=== PATIENT | female | born 1960 | race Caucasian/White ===

== ENCOUNTER 2025-02-10 11:17 | Outpatient (AMB) | payer MEDICARE, MEDICAID, SELFPAY ==
--- OUTSIDE RECORDS SUMMARY | 2025-02-10 13:01 | XMS_ITS | Clinical Summary ---
Author Organization [facility] 299 [facility] Address [address] [place] [address] Phone Care Team Providers Care Television Specialist Name Role Phone Renu Ventura MD Primary Care Provider + [phone] Allergies Active Allergy Reactions Criticality Noted Date Comments Codeine Anaphylaxis High 01/01/2019 Doxycycline High 01/01/2019 Other Reaction(s): Numbness, tingling or swelling of the lips, tongue or mouth Medications levothyroxine (SYNTHROID, LEVOTHROID) 100 mcg tablet Take 10 mcg by mouth daily. 10 mcg Active loratadine (CLARITIN) 10 mg tablet Take 10 mg by mouth daily. Active sertraline HCl (SERTRALINE ORAL) Take 200 mg by mouth daily. Active lamoTRIgine (LaMICtal) 150 mg tablet Take 150 mg by mouth daily. Active cholecalciferol, vitamin D3, 75 mcg (3,000 unit) tablet Take by mouth. Daily Active aspirin (ASPIR-81 ORAL) Take 81 mg by mouth daily. Active atorvastatin (LIPITOR) 10 mg tablet Take 10 mg by mouth daily. Active ezetimibe (ZETIA) 10 mg tablet Take 10 mg by mouth daily. Active NexIUM [address] nedraIndicaticarmen ns:GERD (gastroesophagea l reflux disease) TAKE 1 CAPSULE BY MOUTH TWICE A DAY 180 capsule 2 07/12/19 25 Active benzonatate (TESSALON) 200 mg capsule TAKE 1 CAPSULE BY MOUTH THREE TIMES A DAY NEEDED FOR COUGH NOT CVD* 07/14/19 25 Active betamethasone dipropionate 0.05 % lotion APPLY TO PSORIASIS ON SCALP TWICE DAILY NEEDED 06/01/20 24 Active fluocinonide (LIDEX) 0.05 % gel 0 Refills, Maintenance, 06/24/24 1:27:00 PM EST, Partial fill upon patient request if the prescription is for a schedule II opioid drug. 06/24/19 25 Active fluocinonide (LIDEX) 0.05 % topical solution PLEASE SEE ATTACHED FOR DETAILED DIRECTIONS Active fluticasone propionate (FLONASE) 50 mcg/actuation nasal spray SPRAY ONE SPRAY INTO EACH NOSTRIL Active ketoconazole (NIZORAL) 2 % shampoo PLEASE SEE ATTACHED FOR DETAILED DIRECTIONS Active lisinopriL (PRINIVIL,ZESTRI L) 10 mg tablet Take 1 tablet (10 mg total) by mouth 1 (one) time each day. Active montelukast (SINGULAIR) 10 mg tablet Take 1 tablet (10 mg total) by mouth 1 (one) time each day in the evening. Active Mounjaro 5 mg/0.5 mL injection INJECT 0.5ML SUBCUTANEOUS INFUSION EVERY WEEK 09/29/19 25 Active valACYclovir (VALTREX) 1 gram tablet TAKE TWO PILLS (2 GM) EVERY 12 HOURS X 1 DAY. START AT FIRST SYMPTOM OF COLD SORE. Active mupirocin (BACTROBAN) 2 % ointment Apply topically 3 (three) times a day. Active multivit-min/sarita janine fumarate (MULTI VITAMIN ORAL) Take by mouth. Activ e polyethylene glycol (MIRALAX) 17 gram packetIndication s:Slow transit constipation Take 17 g by mouth 1 (one) time each day. 510 g 11 10/13/19 25 026 Active rOPINIRole (REQUIP) 1 mg tablet Take 1 tablet (1 mg total) by mouth at bedtime. 30 tablet 3 01/20/20 25 Active rOPINIRole (REQUIP) 1 mg tablet TAKE 1 TABLET BY MOUTH DAILY AT BEDTIME AFTER COMPLETION OF 0.25MG PRESCRIPTION 025 Discontin ued(Reord er) Active Problems Problem Noted Date Diagnosed Date Breast pain 01/01/2019 Class 3 severe obesity with body mass index (BMI) of 40.0 to 44.9 in adult ([facility] V24, [facility] V28) 01/01/2019 Surgical History Surgery Date Site/Laterality Comments BREAST REDUCTION PROCEDURE: NC BREAST REDUCTION; COMMENT: 2016 TUBAL LIGATION PROCEDURE: HISTORICAL TUBAL LIGATION; COMMENT: 2007 TONSILLECTOMY PROCEDURE: HISTORICAL TONSILLECTOMY; COMMENT: 1976 CHOLECYSTECTOMY 04/14/2023 Dr. Lopez- partial kayleigh with ELIAN LUNG SURGERY 06/03/2023 RUL nodule- Dr. Burt ESOPHAGOGASTRODUODENOSCOPY 03/01/2022 small hh, nl gastric and esophagus bx ESOPHAGOGASTRODUODENOSCOPY 11/12/2011 small hh, fundic polyp COLONOSCOPY W/ POLYPECTOMY 02/21/2018 - 03/22/2018 TA x 3 COLONOSCOPY 05/23/2021 - 06/22/2021 TA x 1 - 5 yr Medical History Medical History Date Comments Asthma DX:Asthma Pneumonia DX:Pneumonia Thyroid disease DX:Thyroid disea se History of bleeding ulcers DX:Hi story of bleeding ulcers Depressive disorder DX:Depressiv e disorder Anxiety state DX:Anxiety state Anemia DX:Anemia Irritable bowel syndrome wit h constipation and diarrhea DX:Bowel disease History of joint problems DX:His tory of joint problems RLS (restless legs syndrome) Family History Medical History Relation Name Comments Alcohol/Drug Father Diabetes Father Hypertension Father Other: amputation of toes Father Other: heart attacks Father Other: kidney disease Father Pneumonia Father Hyperlipidemia Mother Other: bowel problems Mother Relation Name Status Comments Father Mother Alive Social History Tobacco Use Types Packs/Day Years Used Date Smoking Tobacco: Never Smokeless Tobacco: Never Alcohol Use Standard Drinks/Week Comments No 0 (1 standard drink = 0.6 oz pur e alcohol) Comments Unknown Sex and Gender Information Value Date Recorded Sex Assigned at Not on file Legal Sex Female 10:54 PM EST Gender Identity Not on file Sexual Orientation Not on file Obstetrics History Last Filed Vital Signs Vital Sign Reading Time Taken Comments Blood Pressure 138/76 04/09/2022 1:19 PM EDT Sit ting L Arm Pulse 64 04/09/2022 1:19 PM EDT Temperature - - Respiratory Rate - - Oxygen Saturation - - Inhaled Oxygen Concentration - - Weight 61.7 kg (136 lb) 10/12/2024 2:19 PM EDT Height 157.5 cm (5' 2 ) 10/12/2024 2:19 PM EDT Body Mass Index 24.87 10/12/2024 2:19 PM EDT Plan of Treatment Upcoming Encounters Date Type Department Care Team (Late st Contact Info) Description 03/17/2025 1:30 PM EDT Office Visit Pulmonolgy - [place] 175 [facility] [address] [place] [address] Aaron Ross MD [address] [address] Health Maintenance Due Date Last Done Comments Breast Cancer Screening 1960 Hepatitis A Vaccines (1 of 2 - Risk 2-dose series) 12/01/1979 Cervical Cancer Screening: Pap Smear 1981 Hepatitis B Vaccines (1 of 3 - Risk 3-dose series) 2020 RSV Immunization Adult Patients (1 - Risk 60-74 years 1-dose series) 2020 Pneumococcal Vaccine: 50+ Years (3 of 3 - PCV20 or PCV21) 03/13/2021 03/13/2016, 05/18/2014 Cholesterol Screening (Lipid Panel) 05/26/2022 Colorectal Cancer Screening: Colonoscopy 05/26/2022 HIV Screening 05/26/2022 Hepatitis C Screening 05/26/2022 Medicare Annual Wellness Visit 05/26/2022 Social Influencers of Health Screening 05/26/2022 COVID-19 Vaccine ( season) 2024 03/22/2022, 06/05/2021, 08/22/2020, Additional history exists Depression Screening 06/23/2024 Hypertension/CHF/CAD Annual BMP Blood Test 10/10/2024 Influenza Vaccine (#1) 2025 , 04/09/2023, 05/07/2022, Additional history exists DTaP,Tdap,and Td Vaccines (3 - Td or Tdap) 04/20/2032 04/20/2022, 08/08/2011 MMR Vaccines Aged Out 12/11/2018 No longer eligi ble based on patient's age to complete this topic Zoster Vaccines Completed 08/30/2021, 05/07/2021 HIB Vaccines Aged Out No longer eligi ble based on patient's age to complete this topic HPV Vaccines Aged Out No longer eligi ble based on patient's age to complete this topic IPV Vaccines Aged Out No longer eligi ble based on patient's age to complete this topic Meningococcal ACWY Vaccine Aged Out N o longer eligible based on patient's age to complete this topic Meningococcal B Vaccine Aged Out No l onger eligible based on patient's age to complete this topic RSV Immunization Patients Under 20 months Aged Out No longer eligible based on patient's age to complete this topic Varicella Vaccines Aged Out No longer eligible based on patient's age to complete this topic Insurance MEDICARE MEDICAID - [place] Care Teams Television Specialist Relationship Specialty Start Date End Date Renu Ventura MD [address] [place] [address] PCP - General Internal Medicine 10/12/24
--- OUTSIDE RECORDS SUMMARY | 2025-02-10 13:01 | XMS_ITS | Clinical Summary ---
Author Organization [facility] Address [address] [address] Phone Care Team Providers Care Feller Seam Operator Name Role Phone Renu Ventura MD Primary Care Provide r Allergies Active Allergy Reactions Criticality Noted Date Comments Citalopram Unknown 03/04/2019 Codeine Anaphylaxis High 03/04/2019 Doxycycline Hives 03/04/2019 Medications atorvastatin (LIPITOR) 10 MG tablet TAKE 2 TABLETS BY MOUTH DAILY TOLERATED 3 9 Active cholecalciferol, vitamin D3, (VITAMIN D3) 400 unit capsule Active diclofenac sodium (VOLTAREN) 75 MG EC tablet TAKE 1 TABLET BY MOUTH TWICE A DAY Active NEXIUM 40 mg capsule Take 40 mg by mouth. 0 9 Active lamoTRIgine (LAMICTAL) 150 MG tablet TAKE 1 TABLET BY MOUTH EVERY DAY AT NIGHT 0 9 Active fexofenadine (CHRISTO ALLERGY) 180 MG tablet 1 tablet Active levoFLOXacin (LEVAQUIN) 750 MG tablet Take 750 mg by mouth daily. 0 9 Active levothyroxine (SYNTHROID, LEVOTHROID) 100 MCG tablet TAKE 1 TABLET BY MOUTH DAILY FRI-FRIDAY AND ONE AND A HALF TABS ON SUNDAYS 5 9 Active loratadine (CLARITIN) 10 mg tablet Take 10 mg by mouth daily. 7 9 Active methylPREDNISolon e (MEDROL DOSEPACK) 4 mg tablet 9 Active sertraline (ZOLOFT) 100 MG tablet Take 200 mg by mouth daily. 0 9 Active rosuvastatin (CRESTOR) 10 MG tablet 1 tablet Active montelukast (SINGULAIR) 10 mg tablet 1 tablet in the evening Active ezetimibe (ZETIA) 10 mg tablet Take by mouth. 1 Active famotidine (PEPCID) 40 MG tablet 3 Active fluocinonide 0.05 % external solution 3 Active ketoconazole (NIZORAL) 2 % shampoo 3 Active metFORMIN (GLUCOPHAGE) 500 MG tablet Take 500 mg by mouth every morning. 3 Active nabumetone (RELAFEN) 750 MG tablet Take by mouth. 0 Active OZEMPIC 0.25 mg or 0.5 mg (2 mg/3 mL) subcutaneous injection pen INJECT 1 SYRINGE SQ ON THE SAME DAY EACH WEEK 3 Active valACYclovir (VALTREX) 1000 MG tablet 3 Active MOUNJARO 7.5 mg/0.5 mL PnIj Inject 7.5 mg under the skin. 4 Active lisinopril (PRINIVIL,ZESTRIL ) 10 MG tablet Take 10 mg by mouth daily. Active fluticasone propionate (FLONASE) 50 mcg/actuation nasal spray SPRAY ONE SPRAY INTO EACH NOSTRIL 4 Active Active Problems No known active problems Immunizations Immunization Administration Dates Next Due COVID-19 (Pre-04/14) Moderna Vaccine, mRNA, PF 08/01/2020 Influenza Quadrivalent MDCK Preservative Free IM 05/07/2022,04/04/2021,04/10/2019,04/11 Influenza Quadrivalent Prese rvative Free IM 04/08/2020,07/02/2015 MMR 12/11/2018 Pneumococcal conjugate PCV13 03/13/2016 Pneumococcal polysaccharide PPSV23 05/18/2014 Td, unspecified formulation 08/08/2011 Tdap 04/20/2022 Zoster recombinant 08/30/2021,05/07/2021 Social History Tobacco Use Types Packs/Day Years Used Date Smoking Tobacco: Never Smokeless Tobacco: Never Tobacco Cessation:Counseling Given: Not Answered Education Answer Date Recorded Are you interested in more education? Not on lianne e 10/17/2022 Are you concerned about learning? Not on file 10/17/2022 No 10/17/2022 No 10/17/2022 Digital Access Answer Date Recorded No 11/18/2022 No 11/18/2022 Reliable internet access at home? Not on file 11/18/2022 Device with a working camera? Not on file Comments Unknown Sex and Gender Information Value Date Recorded Sex Assigned at Female 03/04/2019 11:53 AM EDT Legal Sex Female 7:27 PM EST Gender Identity Female 03/04/2019 11:53 AM EDT Sexual Orientation Straight 03/04/2019 11 :53 AM EDT Last Filed Vital Signs Vital Sign Reading Time Taken Comments Blood Pressure 117/82 04/08/2024 3:53 PM EDT Pulse 72 04/08/2024 3:53 PM EDT Temperature 36.7 C (98 F) 04/08/2024 3:53 PM EDT Respiratory Rate 12 04/08/2024 3:53 PM EDT Oxygen Saturation 98% 04/08/2024 3:53 PM EDT Inhaled Oxygen Concentration - - Weight 104.3 kg (230 lb) 01/03/2023 1:27 PM EDT Height 158.8 cm (5' 2.5 ) 03/04/2019 12:08 PM ED T Body Mass Index 41.4 03/04/2019 12:08 PM EDT Plan of Treatment Health Maintenance Due Date Last Done Comments CREATININE LEVEL 1960 LIPID PANEL 1960 POTASSIUM LEVEL 1960 TSH LEVEL 1960 DEPRESSION SCREENING 1972 HEPATITIS C SCREENING 1978 HIV ONE-TIME SCREENING (18-65 YEARS) 1978 PAP SMEAR 1981 SCREENING FOR DIABETES 12/01/1995 MAMMOGRAM 2000 COLOGUARD 2005 COLONOSCOPY 2005 COLORECTAL CANCER SCREENING 2005 FIT TEST 2005 FOBT 2005 SIGMOIDOSCOPY 2005 VIRTUAL COLONOSCOPY 2005 RSV VACCINE (1 - Risk 60-74 years 1-dose series) 2020 PNEUMOCOCCAL VACCINES (50+ years) (3 of 3 - PCV20 or PCV21) 03/13/2021 03/13/2016, 05/18/2014 COVID-19 VACCINE ( season) 2024 03/22/2022, 06/05/2021, 08/22/2020, Additional history exists Adult Td,Tdap Booster 04/20/2032 04/20/2022, 012 ZOSTER VACCINES Completed 08/30/2021, 05/07/2021 SMOKING STATUS SCREENING (Once After 26 Yrs) Completed 04/08/2024 HEPATITIS A VACCINES Aged Out No long er eligible based on patient's age to complete this topic HIB VACCINES Aged Out No longer eligi ble based on patient's age to complete this topic MENINGOCOCCAL VACCINES (ACWY) Aged Out No longer eligible based on patient's age to complete this topic MENINGOCOCCAL VACCINES (B) Aged Out N o longer eligible based on patient's age to complete this topic Medical Devices Not on file Insurance MEDICARE PART A & B [facility] MEDICARE PART A & B [place] B [employer] MED[facility] PART A & [place] PART A & B [facility] B [facility] MEDICARE PART A & B [facility] Care Teams Feller Seam Operator Relationship Specialty Start Date End Date Renu Ventura MD [address] [place] [id number] PCP - General Internal Medicine 01/19/24 Additional Source Comments The information contained in this document represents components of the legal health record. It is not the complete legal health record.[facility]
== END 2025-02-10 14:17 | disposition home or self-care (01) ==
PROVIDERS: Visit Provider Registered Nurse Emergency
DX: J30.89 Other allergic rhinitis (principal)
CPT/HCPCS: 95117; 95165

== ENCOUNTER 2025-02-17 13:10 | Outpatient (REF) | payer MEDICARE, SELFPAY ==
--- OUTSIDE RECORDS SUMMARY | 2023-08-21 09:00 | XMS_ITS ---
Author Organization [facility] Address [address] [place] [address] Care Team Providers Care Wing Mailer Machine Operator Name Role Phone Andie Evangelista MD Primary Care Provider Cande Basurto [phone] Encounters Encounter Location Date Provider Diagnosis [facility] [address] [place] [address] 08/21/2023 Cande Teran Plan Of Treatment No Information Progress Notes * Andie MIXDOB:[birth year] (64 yo F)Acc No.[id number]:08/21/2023 Progress Notes Patient: Andie SUNSHINE Provider: Min Teran DPM :1960 A ge:62 Y S ex:Female Date:08/21/2023 Address:[address] [place], [place] [phone] Pcp:Andie Evangelista MD Subjective: * Chief Complaints: * * Medical History: Objective: * Vitals: Assessment: Plan: * Treatment: * Images: * The named appointment provid er may or may not be the originator of this progress note, and it is not deemed complete until electronically signed by the appointment provider. Sign off status: Pending * Provider: iMn Teran DPM Date: 08/21/2023 Generated for Lucille smith/Sunday/Eladioitting on: 0 02/17/2025 01:48 PM EDT
--- OUTSIDE RECORDS SUMMARY | 2023-09-01 10:00 | XMS_ITS ---
Author Organization [facility] Address [address] [place] [address] Care Team Providers Care Electric Meter Installer Helper Name Role Phone Andie Evangelista MD Primary Care Provider Cande Basurto [phone] Encounters Encounter Location Date Provider Diagnosis [facility] [address] [place] [address] 09/01/2023 Cande Teran Plan Of Treatment No Information Progress Notes * Andie MIXDOB:[birth year] (64 yo F)Acc No.[id number]:09/01/2023 Progress Notes Patient: Andie SUNSHINE Provider: Min Teran DPM :1960 A ge:62 Y S ex:Female Date:09/01/2023 Address:[address] [place], [place] [phone] Pcp:Andie Evangelista MD Subjective: * Chief Complaints: * * Medical History: Objective: * Vitals: Assessment: Plan: * Treatment: * Images: * The named appointment provid er may or may not be the originator of this progress note, and it is not deemed complete until electronically signed by the appointment provider. Sign off status: Pending * Provider: Min Teran DPM Date: 09/01/2023 Generated for Lucille smith/Sunday/Eladioitting on: 0 02/17/2025 01:48 PM EDT
--- OUTSIDE RECORDS SUMMARY | 2025-02-17 13:48 | XMS_ITS | Patient Health Record ---
Author Organization [facility] Address [address] [place] [address] Care Team Providers Care Medical Dermatologist Name Role Phone Andie Evangelista MD Primary Care Provider UnavailJaylan Roachmie Unavailable [phone] Reason For Referral No Information Plan Of Treatment No Information Insurance Providers Payer Name Payer Address Payer Phone Subscriber Number Group Number Insured Name Patient Relationship to Insured Coverage Start Date Coverage End Date Medicare National [employer] [address] [place] [address] [id number] Andie Martin Self - patient is the insured
--- OUTSIDE RECORDS SUMMARY | 2025-02-17 13:48 | XMS_ITS | Clinical Summary ---
Author Organization [facility] 299 [facility] Address [address] [place] [address] Phone Care Team Providers Care Recruiting Scheduler Name Role Phone Renu Ventura MD Primary Care Provider + [phone] Allergies Active Allergy Reactions Criticality Noted Date [...] mouth daily. Active NexIUM [address] nedraIndfilemonticarmen ns:GERD (gastroesophagea l reflux disease) TAKE 1 [...] (BMI) of 40.0 to 44.9 in adult ([facility] V24, [facility] V28) 01/01/2019 Surgical History Surgery Date Site/Laterality Comments BREAST REDUCTION PROCEDURE: [place] BREAST REDUCTION; COMMENT: 2016 TUBAL LIGATION PROCEDURE: [...] Description 03/17/2025 1:30 PM EDT Office Visit Pulmonol - [place] 175 [facility] [address] [place] [address] Aaron Ross MD [address] [place] [address] Health Maintenance Due Date Last Done Comments [...] Insurance MEDICARE MEDICAID - [place] Care Teams Recruiting Scheduler Relationship Specialty Start Date End Date Renu Ventura MD [address] [place] [address] PCP - General Internal Medicine 10/12/24
--- OUTSIDE RECORDS SUMMARY | 2025-02-17 13:48 | XMS_ITS | Clinical Summary ---
Author Organization [facility] Address [address] [address] Phone Care Team Providers Care Geophysical Prospecting Permit Agent Name Role Phone Renu Ventura MD Primary [...] 2024 03/22/2022, 06/05/2021, 08/22/2020, Additional history exists INFLUENZA VACCINE (#1) 2025 , 05/07/2022, 04/04/2021, Additional history exists Adult Td,Tdap Booster 04/20/2032 [...] file Insurance MEDICARE PART A & B Member Subscriber Plan / Payer (Ef fective 2006-Present) Name:Andie Dotson Member ID:[id number] Relation to Subscriber:Self Name:Andie Dotson Subscriber ID:[id number] Payer ID:[id number] Group ID:Not on file Type:Medicare Address: [facility] DeviceAuthority [facility] [employer] [facility] [address] [place] [address] [facility] MEDICARE PART A & B [employer] [facility] MEDICARE PART A & B [place] MEDICARE PART A & B MEDICARE PART A & B [facility] MEDICARE PART A & B [facility] MEDICARE PART A & [place] MED[place] PART A & B [facility] MEDICARE PART A & B [facility] Care Teams Geophysical Prospecting Permit Agent Relationship Specialty Start Date End Date Renu Ventura MD [address] [address] PCP - General Internal Medicine 01/19/24 Additional Source Comments The information contained in this document represents components of the legal health record. It is not the complete legal health record.[facility]
--- OUTSIDE RECORDS SUMMARY | 2025-02-17 13:48 | XMS_ITS | Encounter Summary ---
Author Organization [facility] Address [address] [address] Phone Care Team Providers Care Spinning Room Worker Name Role Phone Lara Louis MD Primary Care Provider + Andie Santiago MD Primary Care Provider [phone] Renu Ventura MD Primary Care Provide r Reason for Referral * Physical Therapy (Routine) - Closed Specialty Diagnoses / Procedures Referred By Contfrancisco t Referred To Contact Physical Therapy Diagnoses Encounter for rehabilitation System, Provider Not In, PhD [phone] [place] [address] Phone: tel: Referral ID Status Reason Start Date Expiration Date Visits Re quested Visits Authorized [id number] Closed 05/12/2018 06/22/2019 99 99 Encounter Details Date Type Department Care Team (Latest Contact Info) Description 05/07/2018 Transcribe Orders [facility] [address] [place] [address] Lara Louis MD [address] [place] [phone] Encounter for rehabilitation (Primary Dx) Social History Tobacco Use Types Packs/Day Years Used Date Smoking Tobacco: Never Assessed Comments Unknown Sex and Gender Information Value Date Recorded Sex Assigned at Female 03/04/2019 11:53 AM EDT Legal Sex Female 7:27 PM EST Gender Identity Female 03/04/2019 11:53 AM EDT Sexual Orientation Straight 03/04/2019 11 :53 AM EDT documented as of this encounter Plan of Treatment Scheduled Referrals Name Type Priority Associated Diagnoses Orde r Schedule Ambulatory referral to [facility] Physical Therapy Outpatient Referral Routine Encounter for rehabilitation Ordered: 05/07/2018 documented as of this encounter Visit Diagnoses Diagnosis Encounter for rehabilitation- Primary documented in this encounter Additional Health Concerns Infection Onset Date Last Indicated Resolved Time CoV-Risk 01/19/2024 01/19/2024 01/30/2024 1:22 AM EDT documented as of this encounter Care Teams Spinning Room Worker Relationship Specialty Start Date End Date Lara [place] MD [email or web address] PCP - General 06/26/17 08/29/21 Andie Santiago MD PCP - General Internal Medicine 08/30/21 01/18/24 Renu Ventura MD [address] [address] PCP - General Internal Medicine 01/19/24 documented as of this encounter Additional Source Comments The information contained in this document represents components of the legal health record. It is not the complete legal health record.[facility]
[2025-02-17 16:19] LABS: Alanine Aminotransferase 38 U/L (0-31); Cholesterol 234 mg/dL (<200); HDL Cholesterol 60 mg/dL (>40)
== END 2025-02-17 13:11 | disposition home or self-care (01) ==
LOC: HO.WFDLDS 13:10
PROVIDERS: Visit Provider Internal Medicine
DX: E78.00 Pure hypercholesterolemia, unspecified (principal); E03.9 Hypothyroidism, unspecified
CPT/HCPCS: 36415; 82172; 82465; 83695; 83718; 83721; 84443; 84460

== ENCOUNTER 2025-02-23 13:29 | Outpatient (AMB) | payer MEDICARE, MEDICAID, SELFPAY ==
--- OUTSIDE RECORDS SUMMARY | 2023-09-01 10:00 | XMS_ITS ---
Author Organization [facility] Address [address] [place] [address] Care Team Providers Care Sales Development Consultant Name Role Phone Andie Evangelista MD Primary Care Provider Cande Basurto [phone] Encounters Encounter Location Date Provider Diagnosis [facility] [address] [place] [address] 09/01/2023 Cande Teran Plan Of Treatment No Information Progress Notes * Andie MIXDOB:[birth year] (64 yo F)Acc No.[id number]:09/01/2023 Progress Notes Patient: Andie SUNSHINE Provider: Min Teran DPM :1960 A ge:62 Y S ex:Female Date:09/01/2023 Address:[address] [place], [place] [id number] Pcp:Andie Evangelista MD Subjective: * Chief Complaints: [...] Teran DPM Date: 09/01/2023 Generated for Lucille smith/Sunday/eTjackelynitting on: 0 02/23/2025 03:41 PM EDT
--- OUTSIDE RECORDS SUMMARY | 2025-02-23 15:41 | XMS_ITS ---
Author Name Nayely Hull Address Unknown Organization [facility] Care Team Providers Care Exhibitions Curator Name Role Phone Unavailable Primary Care Physician Unavailab le History Of Present Illness This is a 64 year old female who is an established patient who is being seen for a chief complaint of rash. Location: right armRash Type: burning, itchy, and redSeverity: moderateDuration: 2 monthsPertinent Negatives: no blisters, no cough, no sore throat, no chills, no diarrhea, no fevers, and no joint achesPertinent Details: no household contacts with similar rash, no new medications, no new personal care products, and no recent infectionsCurrent Medications: no treatmentAdditional History: Patient reports rash and itchiness concern. Allergies, Adverse Reactions, Alerts Substance RxNorm Reaction(s) Severity Status Start Da te doxycycline 3640 Hives, Weal, Rash, Swelling severe active codeine Anaphylaxis fatal active 04/28/20 19 Medications Medication Generic Name RxNorm Strength Strength Unit Route Dose Dose Form Frequency Date Started Date Ended Status Indication Sig betamethaso ne dipropionat e betameth asone dipropio huber 594254 0.05 % Topica l apply thin layer to skin lotio n daily 06/01/20 24 active Appl y to psor iasi s on scal p twic e jennifer y PRN betamethaso ne, augmented betameth asone, augmente d 408423 0.05 % Topica l lotio n 04/28/20 19 suspend ed Appl y twic e jennifer y to scal p for psor iasi s x 2 week s on, 1 week off; not for face /eye lids betamethaso ne, augmented betameth asone, augmente d 738737 0.05 % Topica l lotio n 08/20/19 22 suspend ed Appl y to scal p BID x2 wks on, 1 wk off. Repe at as need ed. No face , eyel ids, clobetasol clobet[place] 716280 0.05 % Topica l foam 04/28/20 suspend ed Appl y BID to affe cted area s of psor iasi s on scal p for 2 week s on and take 1 week off, PRN. Avoi d face and body fold s. clobetasol clobet[place] 416808 0.05 % Topica l foam 12/14/19 22 suspend ed appl y to scal p nigh tly x 1 phyllis h then 2-3x week ly as main jose antonio nce diclofenac sodium 253180 1 % Topica l apply thin layer to skin gel as needed active fluocinonid e fluocino nide 847619 0.05 % Topica l gel 04/28/20 20 suspend ed Appl y BID for judah re flar es to affe cted area s of psor iasi s on scal p for 2 week s on and take 1 week off, PRN. fluocinonid e fluocino nide 902785 0.05 % Topica l gel 08/20/19 22 suspend ed Appl y BID for judah re flar es to affe cted area s of psor iasi s on scal p for 2 week s on and take 1 week off, avoi d face and body fold s PRN. fluocinonid e fluocino nide 467730 0.05 % Topica l gel 12/09/19 24 suspend ed Appl y BID for judah re flar es to affe cted area s of psor iasi s on scal p for 2 week s on and take 1 week off, avoi d face and body fold s PRN. fluocinonid e fluocino nide 496022 0.05 % Topica l apply thin layer to skin gel as needed 06/01/20 24 active Appl y to scal p psor iasi s twic e jennifer y PRN ketoconazol e ketocona zole 495848 2 % Topica l shamp oo 04/28/20 19 suspend ed Lath er leav e x 4-5 liya miracle and rins e jennifer y when scal p is flak ing, then 2-3x per week as main jose antonio nce mupirocin mupiroci n 366002 2 % Topica l ointm ent suspend ed nystatin nystatin 357988 100,000 unit/gram Topica l cream suspend ed fluticasone propionate 1531135 50 mcg/actua tion Intran mehran Insta ll 1 spray , suspe nsion into each nostril daily active atorvastati n 792399 10 mg Oral Take 1 table t daily active cefdinir 543968 300 mg Oral Take 1 capsu le daily active cetirizine 8458132 10 mg Oral Take 1 table t daily active cholecalcif xiomara (vitamin D3) 867377 50 mcg (2,000 unit) Oral Take 1 capsu le daily active famotidine 071973 20 mg Oral Take 1 table t daily active gabapentin 623356 300 mg Oral Take 1 capsu le daily active lamotrigine 700879 150 mg Oral Take 1 table t daily active levothyroxi ne 138290 100 mcg Oral Take 1 table t daily active loratadine 110328 10 mg Oral Take 1 table t daily active montelukast 827316 10 mg Oral Take 1 table t daily active Nexium 812404 40 mg Oral Take 1 capsu le,de layed relea se (ente arvind mendosa d) daily active ropinirole 800841 1 mg Oral Take 1 table t daily active sertraline 600109 100 mg Oral Take 1 table t daily active valacyclovi r valacycl ovir 990223 1 gram Oral table t prn 04/28/20 20 suspend ed Take 2 pill s PO at firs t sign of ting ling and than take 2 more pill s 12 hour s late r, PRN ting ling /col d sore s. valacyclovi r 109653 1 gram Oral Take 1 table t daily active Valtrex valacycl ovir 571512 1 gram Oral Take 1 table t Q12 HOURS 06/01/20 24 active Take two pill s (2 GM) ever y 12 hour s x 1 day. Star t at firs t symp rose of cold sore . fluocinolon e and shower cap fluocino lone and shower cap 4684173 0.01 % Scalp oil 02/19/20 25 active Appl y to damp hair QHS or QOHS , leav e of 30-6 0 liya miracle, comb thro ugh scal e and then sham poo out/ rins e out Ariadne 8435731 5 mg/0.5 mL Subcut aneous Injec t 1 Pen Injec tor weekly active Ozempic semaglut benny 1 mg/dose (4 mg/3 mL) Subcut aneous pen injec tor suspend ed estradiol 618765 0.01 % (0.1 mg/gram) Vagina l apply thin layer to skin cream 3 times a week active Aspirin NULL 11/27/19 18 suspend ed Azithromyci n NULL 12/16/19 15 active Betamethaso ne Dipropionat e NULL 08/08/19 12 suspend ed Betamethaso ne Dipropionat e Aug NULL 05/28/20 18 suspend ed CLOBETASOL PROP 0.05% FOAM NULL 09/07/19 08 suspend ed Clobetasol Propionate NULL 05/27 18 suspend ed DRUG UNKNOWN NULL 08/08/19 12 active Ezetimibe NULL 11/27/19 18 suspend ed FLUOCINOLON E 0.025% OINTMENT NULL 0 16 suspend ed Fluocinonid e NULL 01/23/20 11 suspend ed Fluticasone Propionate NULL 12/15 15 suspend ed Ibuprofen NULL prn 12/16/19 15 suspend ed Ketoconazol e NULL 10/06/19 10 suspend ed Levothyroxi ne Sodium NULL 15 active Levothyroxi ne Sodium NULL 15 active methylPREDN ISolone NULL 08/05/19 19 active Salex NULL 09/07/19 08 active ValACYclovi r HCl NULL 08/21/19 16 suspend ed Voltaren NULL 08/05/19 19 active Zetia NULL 09/07/19 08 suspend ed Problems Problem Code Type Status Date of Diagnosis Date of Resolution Psoriasis vulgaris (disorder) 796590296( SNOMED) Diagnosis active 02/18/2025 Psoriasis vulgaris (disorder) 733477705( SNOMED) Diagnosis active 06/01/2024 Herpesviral vesicular dermatitis (disorder) 065518255( SNOMED) Diagnosis active 06/01/2024 Herpesviral vesicular dermatitis (disorder) 284236826( SNOMED) Diagnosis active 03/27/2023 Psoriasis vulgaris (disorder) 361374133( SNOMED) Diagnosis active 03/27/2023 Inflamed seborrheic keratosis (disorder) 059355400( SNOMED) Diagnosis active 03/27/2023 Seborrheic keratosis (disorder) 332135752( SNOMED) Diagnosis active 03/27/2023 Disorder of pigmentation (disorder) 371578419( SNOMED) Diagnosis active 03/27/2023 Melanocytic nevus (disorder) 761935520( SNOMED) Diagnosis active 03/27/2023 Hemangioma of skin and subcutaneous tissue (disorder) 843489529( SNOMED) Diagnosis active 03/27/2023 Cyst of bursa (disorder) 957244887( SNOMED) Diagnosis active 03/27/2023 Psoriasis vulgaris (disorder) 308385070( SNOMED) Diagnosis active 06/06/2022 Seborrheic keratosis (disorder) 407666925( SNOMED) Diagnosis active 06/06/2022 Psoriasis vulgaris (disorder) 401764392( SNOMED) Diagnosis active 01/29/2022 Inflamed seborrheic keratosis (disorder) 781840302( SNOMED) Diagnosis active 01/29/2022 Prurigo nodularis (disorder) 24643548(S NOMED) Diagnosis active 01/29/2022 Hypertrophic condition of skin (disorder) 66140732(S NOMED) Diagnosis active 01/29/2022 Psoriasis vulgaris (disorder) 418516101( SNOMED) Diagnosis active 12/13/2021 Seborrheic keratosis (disorder) 201474092( SNOMED) Diagnosis active 12/13/2021 Hypertrophic condition of skin (disorder) 03668295(S NOMED) Diagnosis active 12/13/2021 Psoriasis vulgaris (disorder) 600037736( SNOMED) Diagnosis active 10/12/2021 Non-bullous impetigo (disorder) 611123952( SNOMED) Diagnosis active 10/12/2021 Benign lipomatous neoplasm of skin and/or subcutaneous tissue of left upper limb (disorder) 4856536684 21196(SNOM ED) Diagnosis active 10/12/2021 Hypertrophic condition of skin (disorder) 25018039(S NOMED) Diagnosis active 10/12/2021 Psoriasis vulgaris L40.0(ICD- 10) Diagnosis active 04/28/2020 Other seborrheic dermatitis L21.8(ICD- 10) Diagnosis active 04/28/2020 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(ICD- 10) Diagnosis active 04/28/2020 Hemangioma of skin and subcutaneous tissue D18.01(ICD -10) Diagnosis active 04/28/2020 Other melanin hyperpigmentation L81.4(ICD- 10) Diagnosis active 04/28/2020 Other rosacea L71.8(ICD- 10) Diagnosis active 04/28/2020 Other seborrheic keratosis L82.1(ICD- 10) Diagnosis active 04/28/2020 Venous insufficiency (chronic) (peripheral) I87.2(ICD- 10) Diagnosis active 04/28/2020 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) Diagnosis active 04/28/2020 Neoplasm of uncertain behavior of skin D48.5(ICD- 10) Diagnosis active 04/28/2019 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(ICD- 10) Diagnosis active 04/28/2019 Melanocytic nevi, unspecified D22.9(ICD- 10) Diagnosis active 04/28/2019 Psoriasis vulgaris L40.0(ICD- 10) Diagnosis active 04/28/2019 Other benign neoplasm of skin, unspecified D23.9(ICD- 10) Diagnosis active 04/28/2019 Other seborrheic keratosis L82.1(ICD- 10) Diagnosis active 04/28/2019 Other melanin hyperpigmentation L81.4(ICD- 10) Diagnosis active 04/28/2019 Hemangioma of skin and subcutaneous tissue D18.01(ICD -10) Diagnosis active 04/28/2019 Senile hyperkeratosis (disorder) 498681664( SNOMED) Diagnosis active 05/27/2018 Personal history of other drug therapy Z92.29(ICD -10) Diagnosis active 11/26/2017 Encounter for immunization Z23(ICD-10 ) Diagnosis active 11/26/2017 Psoriasis vulgaris (disorder) 416183140( SNOMED) Diagnosis active 11/26/2017 Psoriasis vulgaris (disorder) 443265043( SNOMED) Diagnosis active 03/11/2016 Psoriasis vulgaris (disorder) 806672332( SNOMED) Diagnosis active 08/21/2015 Psoriasis (disorder) 6779245(SN OMED) Diagnosis active 06/02/2014 Psoriasis (disorder) 3715511(SN OMED) Problem active Anxiety disorder (disorder) 326852215( SNOMED) Problem active Arthritis (disorder) 9059708(SN OMED) Problem active Depressive disorder (disorder) 52131542(S NOMED) Problem active Diabetes mellitus (disorder) 79813966(S NOMED) Problem active Gastroesophageal reflux disease (disorder) 348649556( SNOMED) Problem active Hypercholesterolemia (disorder) 67035570(S NOMED) Problem active Hypothyroidism (disorder) 34559266(S NOMED) Problem active Acne (disorder) 76565025(S NOMED) Problem active Asteatosis cutis (disorder) 58950255(S NOMED) Problem active History of hay fever (situation) 317061137( SNOMED) Problem active Scalp pruritus (disorder) 666349623( SNOMED) Problem active History of skin disorder (situation) 751801034( SNOMED) Problem active Allergic rhinitis (disorder) 43781526(S NOMED) Problem active History of hypertension (situation) 215026379( SNOMED) Problem active Mood disorder (disorder) 52873761(S NOMED) Problem active Nodule of lung (disorder) 619168932( SNOMED) Problem active Human herpes simplex virus (organism) 63798033(S NOMED) Problem active Rosacea (disorder) 794030078( SNOMED) Problem active Seborrheic keratosis (disorder) 379730636( SNOMED) Problem active Synovial cyst (morphologic abnormality) 001322768( SNOMED) Problem active Results No data Encounters Service provided at [facility], [address] [place] [address], [address], [place], [place] [id number]. Office phone number is [phone]. Office fax number is [phone]. Encounter Diagnosis Location Date / Time Type Psoriasis (L40.0) [facility] 02/18/2025 18:15:00 [facility] [id number] Reason For Referral I saw Andie Dotson in the office on February 18, 2025.Below is a summary of our visit:Psoriasis: faint erythematous patches to elbows, scalp with psoriasiform plaques with micaceous scale to posteriorand postauricular areas distributed on the left elbow, right elbow, and scalp.Plan: Counseling, Medication Counseling, Prescription, Prescription Medication Management, and Additional Notes.My impression and plan was the followin.PsoriasisCounselingMedication CounselingPrescription: fluocinolone0.01 % scalp oil and shower cap ScalpPrescription Medication Management: Continue Regimen - Betamethasone dipropionate 0.05 % topical cream: Apply AM And PM to the psoriasis elbows and legs as needed.Fluocinonide 0.05 % topical solution: Apply 5-10 drop AM and PM to scalp and massage in as neededKetoconazole 2% shampoo; Discontinue Regimen - Betamethasone dipropionate 0.05 % lotion Fluocinonide 0.05 % topical gel; Initiate Treatment - Fluocinolone 0.01 % scalp oil: Apply to damp hair QHS or QOHS, leave of 30-60 minutes, comb through scale and then shampoo out/rinse out;.Additional Notes Procedures Procedure Date Cryotherapy of skin lesion with liquid n itrogen (procedure) 03/27/2023 12:00 am [facility] Cryotherapy of skin lesion with liquid n itrogen (procedure) 01/29/2022 12:00 am [facility] History of tubal ligation (situation) Documentation of past medical history (p rocedure) History of tubal ligation (situation) Documentation of past medical history (p rocedure) History of tubal ligation (situation) Documentation of past medical history (p rocedure) History of tubal ligation (situation) Documentation of past medical history (p rocedure) Documentation of past medical history (p rocedure) History of tubal ligation (situation) History of tubal ligation (situation) Documentation of past medical history (p rocedure) History of tubal ligation (situation) Documentation of past medical history (p rocedure) History of tubal ligation (situation) Documentation of past medical history (p rocedure) Cholecystectomy (procedure) History of tubal ligation (situation) History of reduction of breast (situatio n) Nodule of lung (disorder) History of tubal ligation (situation) Cholecystectomy (procedure) History of reduction of breast (situatio n) Nodule of lung (disorder) Removed Review Of Systems Provider reviewed on Feb 18, 2025.A focused review of systems was performed including Allergic / Immunologic, Endocrine, Integumentary, and Psychiatric and was notable for problems with healing, hay fever, thyroid problems, anxiety, and depression.No Problems With Scarring (hypertrophic Or Keloid). Assessment 1.PsoriasisCounselingMedication CounselingPrescription: fluocinolone 0.01 % scalp oil and shower cap ScalpPrescription Medication Management: Continue Regimen - Betamethasone dipropionate 0.05 % topical cream: Apply AM And PM to the psoriasis elbows and legs as needed.Fluocinonide 0.05 % topical solution: Apply 5-10 drop AM and PM to scalp and massage in as neededKetoconazole 2% shampoo; Discontinue Regimen - Betamethasone dipropionate 0.05 % lotion Fluocinonide 0.05 % topical gel; Initiate Treatment - Fluocinolone 0.01 % scalp oil: Apply to damp hair QHS or QOHS, leave of 30-60 minutes, combthrough scale and then shampoo out/rinse out;.Additional Notes Plan of Care Future visit for 05/13/2025 - Follow up in 3 months for: Focused Visit - 15 minutes. Other Instructions: Recheck psoriasis [place] office. Other Instructions: Recheck psoriasis [place] office. Code Detail Instructions 2252148 fluocinolone 0.01 % scalp oil and shower cap Apply to damp hair QHS or QOHS, leave of 30-60 minutes, comb through scale and then shampoo out/rinse out 491611 ketoconazole 2 % shampoo Apply t o scalp daily, lather in and let sit for 5-10 minutes then rinse. Repeat daily x1 month for scale/flare, then 2-3x weekly for maintenance. 000937 ketoconazole 2 % shampoo Apply t o scalp daily, lather in and let sit for 5-10 minutes then rinse. Repeat daily x1 month for scale/flare, then 2-3x weekly for maintenance. 717011 Valtrex 1 gram tablet Take two p ills (2 GM) every 12 hours x 1 day. Start at first symptom of cold sore. 139180 mupirocin 2 % topical ointment A pply to facial sore BID until healed. 274903 betamethasone diprop ionate 0.05 % lotion Apply to psoriasis on scalp twice daily PRN 899112 fluocinonide 0.05 % topical gel Apply to scalp psoriasis twice daily PRN 803358 fluocinonide 0.05 % topical solu tion Apply to areas of psoriasis on scalp 1-2x daily PRN rash up to 2 wks on, 1 wk off. Repeat as needed. 907856 betamethasone diprop ionate 0.05 % topical cream Apply to psoriasis on body BID PRN. Not for face. 208074 fluocinonide 0.05 % topical gel Apply BID for severe flares to affected areas of psoriasis on scalp for 2 weeks on and take 1 week off, avoid face and body folds PRN. 021496 betamethasone diprop ionate 0.05 % topical cream apply to areas of psoriasis on body 2x daily for 2 wks, take 1 week off 749741 valacyclovir 1 gram tablet Take 2 pills PO at first sign of tingling and than take 2 more pills 12 hours later, PRN tingling/cold sores. 803050 fluocinonide 0.05 % topical solu tion use every night on scalp with shower cap until clear 454902 ketoconazole 2 % shampoo Apply t o scalp daily, lather in and let sit for 5-10 minutes then rinse. Repeat daily x1 month for scale/flare, then 2-3x weekly for maintenance. 255177 mupirocin 2 % topical ointment a pply to nose until cleared 812942 fluocinonide 0.05 % topical solu tion use every night on scalp with shower cap until clear 860988 valacyclovir 1 gram tablet Take 2 pills PO at first sign of tingling and than take 2 more pills 12 hours later, PRN tingling/cold sores. 934341 ketoconazole 2 % shampoo Apply t o scalp daily, lather in and let sit for 5-10 minutes then rinse. Repeat daily x1 month for scale/flare, then 2-3x weekly for maintenance. 836521 betamethasone diprop ionate 0.05 % topical cream apply to areas of psoriasis on body 2x daily for 2 wks, take 1 week off 258639 clobetasol 0.05 % topical foam a pply to scalp nightly x 1 month then 2-3x weekly as maintenance 254193 mupirocin 2 % topical ointment a pply to nose until cleared 318149 fluocinonide 0.05 % topical solu tion use every night on scalp with shower cap until clear 811106 ketoconazole 2 % shampoo Apply t o scalp daily, lather in and let sit for 5-10 minutes then rinse. Repeat daily x1 month for scale/flare, then 2-3x weekly for maintenance. 116973 fluocinonide 0.05 % topical gel Apply BID for severe flares to affected areas of psoriasis on scalp for 2 weeks on and take 1 week off, avoid face and body folds PRN. 286518 valacyclovir 1 gram tablet Take 2 pills PO at first sign of tingling and than take 2 more pills 12 hours later, PRN tingling/cold sores. 938349 betamethasone, augmented 0.05 % lotion Apply to scalp BID x2 wks on, 1 wk off. Repeat as needed. No face, eyelids, 968215 betamethasone, augmented 0.05 % lotion Apply twice daily to scalp for psoriasis x 2 weeks on, 1 week off; not for face/eyelids 087363 valacyclovir 1 gram tablet Take 2 pills PO at first sign of tingling and than take 2 more pills 12 hours later, PRN tingling/cold sores. 005270 clobetasol 0.05 % topical foam A pply BID to affected areas of psoriasis on scalp for 2 weeks on and take 1 week off, PRN. Avoid face and body folds. 729882 fluocinonide 0.05 % topical gel Apply BID for severe flares to affected areas of psoriasis on scalp for 2 weeks on and take 1 week off, PRN. 624395 ketoconazole 2 % shampoo Lather leave x 4-5 minutes and rinse daily when scalp is flaking, then 2-3x per week as maintenance 903628 betamethasone, augmented 0.05 % lotion Apply twice daily to scalp for psoriasis x 2 weeks on, 1 week off; not for face/eyelids 583469 ketoconazole 2 % shampoo Lather leave x 4-5 minutes and rinse daily when scalp is flaking, then 2-3x per week as maintenance Instructions * I counseled the patient regarding the following:Skin care: Emollients, ambient sun exposure, shampoos with tar, selenium or zinc pyrithione can improve psoriasis.Expectations: Psoriasis is chronic innature with periods of remissions and flares. Flares can be triggered by stress, infections (group A strep), certain medications and alcohol.Contact office if: Psoriasis worsens, or fails to improve despite several months of treatment.I recommended the following: CleansersMoisturizersTopical Steroids * Topical Steroids Counseling: I discussed with the patient that prolonged use of topical steroids can result in the increased appearance of superficial blood vessels (telangiectasias), lightening (hypopigmentation) and thinning of the skin (atrophy). Patient understands to avoid using high potency steroids in skin folds, the groin or the face. The patient verbalized understanding of the proper useand possible adverse effects of topical steroids. All of the patient's questions and concerns were addressed. Social History Code Activity Start Date End Date 460191925 (SNOMED) Never smoker Sex female Sexual orientation Unspecified Gender identity Unspecified Vital Signs No data
--- OUTSIDE RECORDS SUMMARY | 2025-02-23 15:41 | XMS_ITS | Patient Health Record ---
Author Organization [facility] Address [address] [place] [address] Care Team Providers Care Polymerization Kettle Operator Name Role Phone Andie Evangelista MD Primary Care Provider UnavailJaylan Roachmie Unavailable [phone] Reason For Referral No Information Plan Of Treatment No Information Insurance Providers Payer Name Payer Address Payer Phone Subscriber Number Group Number Insured Name Patient Relationship to Insured Coverage Start Date Coverage End Date [employer] [address] [place] [address] [id number] Andie Martin Self - patient is the insured
--- OUTSIDE RECORDS SUMMARY | 2025-02-23 15:41 | XMS_ITS | Encounter Summary ---
Author Organization [facility] Address [address] [address] Phone Care Team Providers Care Rubber Goods Tester Water Name Role Phone Lara Louis MD Primary Care Provider + Andie Santiago MD Primary Care Provider [phone] Renu Ventura MD Primary Care Provide r Reason for Referral * Physical Therapy (Routine) - Closed Specialty Diagnoses / Procedures Referred By Contfrancisco t Referred To Contact Physical Therapy Diagnoses Encounter for rehabilitation System, Provider Not In, PhD [id number] [place] [address] Phone: tel: Referral ID Status Reason Start Date Expiration Date Visits Re quested Visits Authorized [id number] Closed 05/12/2018 06/22/2019 99 [phone] Encounter Details Date Type Department Care Team (Latest Contact Info) Description 05/07/2018 Transcribe Orders [facility] [address] [place] [id number] Lara Louis MD [address] [place] [phone] [email or web address] Encounter for rehabilitation (Primary Dx) Social History [...] Diagnoses Orde r Schedule Ambulatory referral to [facility] Physical Therapy Outpatient Referral Routine Encounter for rehabilitation Ordered: 05/07/2018 documented as of this encounter Visit Diagnoses Diagnosis Encounter for rehabilitation- Primary documented in this encounter Additional Health Concerns Infection Onset Date Last Indicated Resolved Time CoV-Risk 01/19/2024 01/19/2024 01/30/2024 1:22 AM EDT documented as of this encounter Care Teams Rubber Goods Tester Water Relationship Specialty Start Date End Date Lara Louis MD [email or web address] PCP - General 06/26/17 08/29/21 Andie Santiago MD PCP - General Internal Medicine 08/30/21 01/18/24 Renu Ventura MD [address] [address] PCP - General Internal Medicine 01/19/24 documented as of this encounter Additional Source Comments The information contained in this document represents components of the legal health record. It is not the complete legal health record.[facility]
--- OUTSIDE RECORDS SUMMARY | 2025-02-23 15:41 | XMS_ITS | Clinical Summary ---
Author Organization [facility] Address [address] [address] Phone Care Team Providers Care Cone Trucker Name Role Phone Renu Ventura MD Primary [...] file Insurance MEDICARE PART A & B [facility] MEDICARE PART A & B [employer] MEDICARE PART A & B [place] MED[place] PART A & B MEDICARE PART A & B HEALTH MEDICARE PART A & B [facility] MEDICARE PART A & [place] MED[place] & B [facility] MEDICARE PART A & B [facility] Care Teams Cone Trucker Relationship Specialty Start Date End Date Renu Ventura MD [address] [address] PCP - General Internal Medicine 01/19/24 Additional Source Comments The information contained in this document represents components of the legal health record. It is not the complete legal health record.[facility]
--- OUTSIDE RECORDS SUMMARY | 2025-02-23 15:41 | XMS_ITS | Clinical Summary ---
Author Organization [facility] 299 [facility] Address [address] [place] [address] Phone Care Team Providers Care Naval Surface Fire Support Planner Name Role Phone Renu Ventura MD Primary Care Provider Allergies Active Allergy Reactions Criticality Noted Date [...] mouth daily. Active NexIUM [address] Meet ns:GERD (gastroesophagea l reflux disease) TAKE 1 CAPSULE BY MOUTH TWICE A DAY 180 capsule 2 5 Active benzonatate (TESSALON) 200 mg capsule TAKE 1 CAPSULE BY MOUTH THREE TIMES A DAY NEEDED FOR COUGH NOT CVD* 5 Active betamethasone dipropionate 0.05 % lotion APPLY TO PSORIASIS ON SCALP TWICE DAILY NEEDED 4 Active fluocinonide (LIDEX) 0.05 % gel 0 Refills, Maintenance, 06/24/24 1:27:00 PM EST, Partial fill upon patient request if the prescription is for a schedule II opioid drug. 5 Active fluocinonide (LIDEX) 0.05 % topical solution [...] injection INJECT 0.5ML SUBCUTANEOUS INFUSION EVERY WEEK 5 Active valACYclovir (VALTREX) 1 gram tablet TAKE [...] (one) time each day. 510 g 11 5 026 Active rOPINIRole (REQUIP) 1 mg tablet Take 1 tablet (1 mg total) by mouth at bedtime. 30 tablet 3 5 Active Active Problems Problem Noted Date Diagnosed Date Breast pain 01/01/2019 Class 3 severe obesity with body mass index (BMI) of 40.0 to 44.9 in adult ([facility] V24, [facility] V28) 01/01/2019 Surgical History Surgery Date Site/Laterality Comments BREAST REDUCTION PROCEDURE: [place] BREAST REDUCTION; COMMENT: 2016 TUBAL LIGATION PROCEDURE: [...] 1:30 PM EDT Office Visit Pulmonolgy - [place] 175 [facility] [address] [place] [address] Aaron Ross MD [facility] [place] [address] Health Maintenance Due Date Last Done Comments [...] 05/26/2022 Social Influencers of Health Screening 05/26/2022 Depression Screening 06/23/2024 Hypertension/CHF/CAD Annual BMP Blood Test 10/10/2024 COVID-19 Vaccine ( season) 2025 03/22/2022, 06/05/2021, 08/22/2020, Additional history exists Influenza Vaccine (#1) 2025 , 04/09/2023, 05/07/2022, [...] Insurance MEDICARE MEDICAID - [place] Care Teams Naval Surface Fire Support Planner Relationship Specialty Start Date End Date Renu Ventura MD 57 [place] [address] PCP - General Internal Medicine 10/12/24
== END 2025-02-23 13:30 | disposition home or self-care (01) ==
LOC: HO.HMGAL 13:29
PROVIDERS: Visit Provider Registered Nurse Emergency
DX: J30.89 Other allergic rhinitis (principal)
CPT/HCPCS: 95117; 95165

== ENCOUNTER 2025-03-09 14:15 | Outpatient (AMB) | payer MEDICARE, MEDICAID, SELFPAY ==
--- OUTSIDE RECORDS SUMMARY | 2025-03-09 17:58 | XMS_ITS | Encounter Summary ---
Author Organization [facility] Address [address] [address] Phone Care Team Providers Care Clinical Research Associate Name Role Phone Lara Louis MD Primary Care Provider + Andie Santiago MD Primary Care Provider +[phone]- [phone] Renu Ventura MD Primary Care Provide r Reason for Referral * Physical Therapy (Routine) - Closed Specialty Diagnoses / Procedures Referred By Contfrancisco t Referred To Contact Physical Therapy Diagnoses Encounter for rehabilitation System, Provider Not In, PhD [id number] [place] [address] Phone: tel: Referral ID Status Reason Start Date Expiration Date Visits Re quested Visits Authorized [id number] Closed 05/12/2018 06/22/2019 99 99 Encounter Details Date Type Department Care Team (Latest Contact Info) Description 05/07/2018 Transcribe Orders [facility] Services [address] [place] [address] Lara Louis MD [address] [place] [address] [email or web address] Encounter for rehabilitation (Primary Dx) Social History [...] Diagnoses Orde r Schedule Ambulatory referral to [facility] Physical Therapy Outpatient Referral Routine Encounter for rehabilitation Ordered: 05/07/2018 documented as of this encounter Visit Diagnoses Diagnosis Encounter for rehabilitation- Primary documented in this encounter Additional Health Concerns Infection Onset Date Last Indicated Resolved Time CoV-Risk 01/19/2024 01/19/2024 01/30/2024 1:22 AM EDT documented as of this encounter Care Teams Clinical Research Associate Relationship Specialty Start Date End Date Lara Loius MD [email or web address] PCP - General 06/26/17 08/29/21 Andie Santiago MD PCP - General Internal Medicine 08/30/21 01/18/24 Renu Ventura MD [address] [address] PCP - General Internal Medicine 01/19/24 documented as of this encounter Additional Source Comments The information contained in this document represents components of the legal health record. It is not the complete legal health record.[facility]
--- OUTSIDE RECORDS SUMMARY | 2025-03-09 17:58 | XMS_ITS | Clinical Summary ---
Author Organization [facility] Address [address] [address] Phone Care Team Providers Care Canal Lock Tender Chief Operator Name Role Phone Renu Ventura MD [...] Payer (Ef fective 2006-Present) Name:Andie Dotson Member ID:[id number] Relation to Subscriber:Self Name:Andie Dotson Subscriber ID:[id number] Payer ID:[id number] Group ID:Not on file Type:Medicare Address: [facility] [employer] [facility] [address] [place] [address] [facility] MEDICARE PART A & B [employer] MEDICARE [place] A & B [place] MED[place] PART A & B MEDICARE PART A & B HEALTH MEDICARE PART A & B [facility] MEDICARE [facility] A & [place] MED[place]ARE [place] A & B [facility] MEDICARE PART A & B [facility] Care Teams Canal Lock Tender Chief Operator Relationship Specialty Start Date End Date Renu Ventura MD [address] [address] PCP - General Internal Medicine 01/19/24 Additional Source Comments The information contained in this document represents components of the legal health record. It is not the complete legal health record.[facility]
== END 2025-03-09 14:18 | disposition home or self-care (01) ==
LOC: HO.HMGAL 14:15
PROVIDERS: PCP Internal Medicine; Visit Provider Registered Nurse Emergency
DX: J30.89 Other allergic rhinitis (principal)
CPT/HCPCS: 95117; 95165

== ENCOUNTER 2025-03-28 15:47 | Outpatient (AMB) | payer MEDICARE, MEDICAID, SELFPAY ==
--- OUTSIDE RECORDS SUMMARY | 2025-03-28 18:05 | XMS_ITS | Clinical Summary ---
Author Organization [facility] Address [address] [address] Phone Care Team Providers Care Supervisor Self Service Store Name Role Phone Renu Ventura MD Primary [...] COLONOSCOPY 2005 RSV VACCINE (1 - Risk 50-74 years 1-dose series) 2010 PNEUMOCOCCAL VACCINES (50+ years) (3 of 3 - PCV20 or PCV21) 03/13/2021 03/13/2016, 05/18/2014 INFLUENZA VACCINE (#1) 2025 , 05/07/2022, 04/04/2021, Additional history exists COVID-19 VACCINE (2024- season) 2025 03/22/2022, 06/05/2021, 08/22/2020, Additional history exists Adult [...] Payer (Ef fective 2006-Present) Name:Andie Dotson Member ID:[id number] Relation to Subscriber:Self Name:Andie Dotson Subscriber ID:[id number] Payer ID:[id number] Group ID:Not on file Type:Medicare Address: [facility] [employer] [facility] [address] [place] [address] [facility] MEDICARE PART A & B [employer] MEDICARE PART A & B [facility] & B MEDICARE PART A & B MEDICARE PART A & B [facility] MEDICARE PART A & B [facility] & [facility] & B [facility] Care Teams Supervisor Self Service Store Relationship Specialty Start Date End Date Renu Ventura MD [address] [address] PCP - General Internal Medicine 01/19/24 Additional Source Comments The information contained in this document represents components of the legal health record. It is not the complete legal health record.[facility]
--- OUTSIDE RECORDS SUMMARY | 2025-03-28 18:05 | XMS_ITS | Encounter Summary ---
Author Organization [facility] Address [address] [address] Phone Care Team Providers Care Marketing Database Consultant Name Role Phone Lara Louis MD Primary Care Provider + Andie Santiago MD Primary Care Provider [phone]- [phone] Renu Ventura MD Primary Care Provide r Reason for Referral * Physical Therapy (Routine) - Closed Specialty Diagnoses / Procedures Referred By Contfrancisco t Referred To Contact Physical Therapy Diagnoses Encounter for rehabilitation System, Provider Not In, PhD [id number] [place] [address] Phone: tel: Referral ID Status Reason Start Date Expiration Date Visits Re quested Visits Authorized [id number] Closed 05/12/2018 06/22/2019 99 99 Encounter Details Date Type Department Care Team (Latest Contact Info) Description 05/07/2018 Transcribe Orders [facility] Rehabilitation Services [address] [place] [address] Lara Louis MD [address] [place] [address] [email or web address] Encounter for rehabilitation (Primary Dx) Social History [...] Diagnoses Orde r Schedule Ambulatory referral to [facility] Physical Therapy Outpatient Referral Routine Encounter for rehabilitation Ordered: 05/07/2018 documented as of this encounter Visit Diagnoses Diagnosis Encounter for rehabilitation- Primary documented in this encounter Additional Health Concerns Infection Onset Date Last Indicated Resolved Time CoV-Risk 01/19/2024 01/19/2024 01/30/2024 1:22 AM EDT documented as of this encounter Care Teams Marketing Database Consultant Relationship Specialty Start Date End Date Lara Louis MD [email or web address] PCP - General 06/26/17 08/29/21 Andie Santiago MD PCP - General Internal Medicine 08/30/21 01/18/24 Renu Ventura MD [address] [address] PCP - General Internal Medicine 01/19/24 documented as of this encounter Additional Source Comments The information contained in this document represents components of the legal health record. It is not the complete legal health record.[facility]
== END 2025-03-28 15:48 | disposition home or self-care (01) ==
LOC: HO.HMGAL 15:47
PROVIDERS: PCP Internal Medicine; Visit Provider Registered Nurse Emergency
DX: J30.89 Other allergic rhinitis (principal)
CPT/HCPCS: 95117; 95165

== ENCOUNTER 2025-04-13 14:49 | Outpatient (AMB) | payer MEDICARE, MEDICAID, SELFPAY ==
--- OUTSIDE RECORDS SUMMARY | 2025-04-13 21:01 | XMS_ITS | Clinical Summary ---
Author Organization [facility] 299 [facility] Address [address] [place] [address] Phone Care Team Providers Care Alarm Service Technician Name Role Phone Renu Ventura MD Primary Care Provider [phone] Allergies Active Allergy Reactions Criticality Noted Date [...] by mouth. Daily Active aspirin (ASPIR-81 ORAL) Acti ve atorvastatin (LIPITOR) 10 mg tablet Take 10 mg by mouth daily. Active ezetimibe (ZETIA) 10 mg tablet Take 10 mg by mouth daily. Active NexIUM [address] capsuleIndicatio ns:GERD (gastroesophagea l reflux disease) TAKE 1 [...] at bedtime. 30 tablet 3 5 Active cetirizine (ZyrTEC) 10 mg tablet Take 1 tablet (10 mg total) by mouth 1 (one) time each day. Active Active Problems Problem Noted Date Diagnosed Date Breast pain 01/01/2019 Class 3 severe obesity with body mass index (BMI) of 40.0 to 44.9 in adult ([facility] V24, [facility] V28) 01/01/2019 Encounters Date Type Department Care Team Description 03/17/2025 1:30 PM EDT Office Visit Pulmonology - [place] 175 [facility] [address] [place] [address] Aaron Ross MD Pulmonary nodule (Primary Dx); Mild intermittent asthma, unspecified whether complicated; Obstructive sleep apnea; PLMD (periodic limb movement disorder) from Last 3 Months Surgical History Surgery Date Site/Laterality Comments BREAST REDUCTION PROCEDURE: [place] BREAST REDUCTION; COMMENT: 2016 TUBAL LIGATION PROCEDURE: [...] Tobacco: Never Tobacco Cessation:Counseling Given: Not Answered Alcohol Use Standard Drinks/Week Comments No 0 (1 standard drink = 0.6 oz pur e alcohol) Comments Unknown Sex and Gender Information Value Date Recorded Sex Assigned at Not on file Legal Sex Female 10:54 PM EST Gender Identity Not on file Sexual Orientation Not on file Obstetrics History Last Filed Vital Signs Vital Sign Reading Time Taken Comments Blood Pressure 144/68 03/17/2025 1:25 PM EDT Pulse 57 03/17/2025 1:25 PM EDT Temperature 36.1 C (97 F) 03/17/2025 1:25 PM EDT Respiratory Rate 20 03/17/2025 1:25 PM EDT Oxygen Saturation 100% 03/17/2025 1:25 PM EDT Inhaled Oxygen Concentration - - Weight 56.7 kg (125 lb) 03/17/2025 1:25 PM EDT Height 157.5 cm (5' 2 ) 03/17/2025 1:25 PM EDT Body Mass Index 22.86 03/17/2025 1:25 PM EDT Plan of Treatment Upcoming Encounters Date Type Department Care Team (Late st Contact Info) Description 09/14/2025 1:00 PM EDT Office Visit Pulmonology - [place] 175 [facility] 200 [place] [phone] Aaron Ross MD [address] [place] [address] 11/08/2025 1:20 PM EDT Office Visit Gastroenterology - 299 [facility] 299 [facility] [address] [place] [address] Madhavi Leyva NP 175 [facility] 200 [place] [address] Health Maintenance Due Date Last Done Comments Breast Cancer Screening 1960 Colorectal Cancer Screening: Colonoscopy 1960 Hepatitis A Vaccines (1 of 2 - Risk 2-dose series) 12/01/1979 Cervical Cancer Screening: Pap Smear 1981 RSV Immunization Adult Patients (1 - Risk 50-74 years 1-dose series) 2010 Hepatitis B Vaccines (1 of 3 - Risk 3-dose series) 2020 Pneumococcal Vaccine: 50+ Years (3 of 3 - PCV20 or PCV21) 03/13/2021 03/13/2016, 05/18/2014 Cholesterol Screening (Lipid Panel) 05/26/2022 HIV Screening 05/26/2022 Hepatitis C Screening [...] Insurance MEDICARE MEDICAID - [place] Care Teams Alarm Service Technician Relationship Specialty Start Date End Date Renu Ventura MD 57 [place] [address] PCP - General Internal Medicine 10/12/24
--- OUTSIDE RECORDS SUMMARY | 2025-04-13 21:01 | XMS_ITS | Clinical Summary ---
Author Organization [facility] Address [address] [address] Phone Care Team Providers Care Heat Treating Furnace Tender Name Role Phone Renu Ventura MD Primary [...] Payer (Ef fective 2006-Present) Name:Andie Dotson Member ID:[id number] Relation to Subscriber:Self Name:Andie Dotson Subscriber ID:[id number] Payer ID:[id number] Group ID:Not on file Type:Medicare Address: [facility] [employer] [facility] [address] [place] [address] [facility] MEDICARE PART A & B [employer] MEDICARE PART A & B [facility] & B MEDICARE PART A & B MEDICARE PART A & B [facility] MEDICARE PART A & B [facility] PART [facility] & B [facility] Care Teams Heat Treating Furnace Tender Relationship Specialty Start Date End Date Renu Ventura MD [address] [address] PCP - General Internal Medicine 01/19/24 Additional Source Comments The information contained in this document represents components of the legal health record. It is not the complete legal health record.[facility]
--- OUTSIDE RECORDS SUMMARY | 2025-04-13 21:01 | XMS_ITS | Encounter Summary ---
Author Organization [facility] Address [address] [address] Phone Care Team Providers Care Technical Aid Name Role Phone Lara Louis MD Primary Care Provider + Andie Santiago MD Primary Care Provider [phone] Renu Ventura MD Primary Care Provide r Reason for Referral * Physical Therapy (Routine) - Closed Specialty Diagnoses / Procedures Referred By Contfrancisco t Referred To Contact Physical Therapy Diagnoses Encounter for rehabilitation System, Provider Not In, PhD [address] [place] [address] Phone: tel: Referral ID Status Reason Start Date Expiration Date Visits Re quested Visits Authorized [id number] Closed 05/12/2018 06/22/2019 99 99 Encounter Details Date Type Department Care Team (Latest Contact Info) Description 05/07/2018 Transcribe Orders [facility] Services [address] [place] [address] Lara Louis MD [address] [place] [address] [email or web address] Encounter for rehabilitation (Primary Dx) Social History [...] Diagnoses Orde r Schedule Ambulatory referral to [facility] Physical Therapy Outpatient Referral Routine Encounter for rehabilitation Ordered: 05/07/2018 documented as of this encounter Visit Diagnoses Diagnosis Encounter for rehabilitation- Primary documented in this encounter Additional Health Concerns Infection Onset Date Last Indicated Resolved Time CoV-Risk 01/19/2024 01/19/2024 01/30/2024 1:22 AM EDT documented as of this encounter Care Teams Technical Aid Relationship Specialty Start Date End Date Lara Louis MD [email or web address] PCP - General 06/26/17 08/29/21 Andie Santiago MD PCP - General Internal Medicine 08/30/21 01/18/24 Renu Ventura MD [address] [address] PCP - General Internal Medicine 01/19/24 documented as of this encounter Additional Source Comments The information contained in this document represents components of the legal health record. It is not the complete legal health record.[facility]
== END 2025-04-13 14:49 | disposition home or self-care (01) ==
LOC: HO.HMGAL 14:49
PROVIDERS: PCP Internal Medicine; Visit Provider Registered Nurse Emergency
DX: J30.89 Other allergic rhinitis (principal)
CPT/HCPCS: 95117; 95165

== ENCOUNTER 2025-05-02 14:50 | Outpatient (AMB) | payer MEDICARE, MEDICAID, SELFPAY ==
--- OUTSIDE RECORDS SUMMARY | 2025-05-02 17:05 | XMS_ITS | Clinical Summary ---
Author Organization [facility] Address [address] [address] Phone Care Team Providers Care Assistant Professor Of Psychology Name Role Phone Renu Ventura MD Primary [...] patient's age to complete this topic IPV VACCINES Aged Out No longer eligi ble based on patient's age to complete this topic MENINGOCOCCAL VACCINES (ACWY) Aged Out No longer eligible based on patient's age to complete this topic MENINGOCOCCAL VACCINES (B) Aged Out N o longer eligible based on patient's age to complete this topic Medical Devices Not on file Insurance MEDICARE PART A & B [facility] MEDICARE PART A & B [employer] [place] MED[place] PART A & B [facility] MEDICARE PART A & B [facility] A & B [facility] MEDICARE PART A & B [place] [facility]ICARE PART A & [facility] PART A & B [facility] Care Teams Assistant Professor Of Psychology Relationship Specialty Start Date End Date Renu Ventura MD [address] [place] [address] PCP - General Internal Medicine 01/19/24 Additional Source Comments The information contained in this document represents components of the legal health record. It is not the complete legal health record.[facility]
--- OUTSIDE RECORDS SUMMARY | 2025-05-02 17:05 | XMS_ITS | Encounter Summary ---
Author Organization [facility] Address [address] [address] Phone Care Team Providers Care Reimbursement Specialist Name Role Phone Lara Louis MD Primary Care Provider + Andie Santiago MD Primary Care Provider [phone]- [phone] Renu Ventura MD Primary Care Provide r Reason for Referral * Physical Therapy (Routine) - Closed Specialty Diagnoses / Procedures Referred By Contfrancisco t Referred To Contact Physical Therapy Diagnoses Encounter for rehabilitation System, Provider Not In, PhD [phone] [place] [address] Phone: tel: Referral ID Status Reason Start Date Expiration Date Visits Re quested Visits Authorized [id number] Closed 05/12/2018 06/22/2019 99 99 Encounter Details Date Type Department Care Team (Latest Contact Info) Description 05/07/2018 Transcribe Orders [facility] Rehabilitation Services [address] [place] [address] Lara Louis MD [address] [place] [address] [email or web address] Encounter for rehabilitation (Primary Dx) Social History [...] Diagnoses Orde r Schedule Ambulatory referral to [facility] Physical Therapy Outpatient Referral Routine Encounter for rehabilitation Ordered: 05/07/2018 documented as of this encounter Visit Diagnoses Diagnosis Encounter for rehabilitation- Primary documented in this encounter Additional Health Concerns Infection Onset Date Last Indicated Resolved Time CoV-Risk 01/19/2024 01/19/2024 01/30/2024 1:22 AM EDT documented as of this encounter Care Teams Reimbursement Specialist Relationship Specialty Start Date End Date Lara Louis MD [email or web address] PCP - General 06/26/17 08/29/21 Andie Santiago MD PCP - General Internal Medicine 08/30/21 01/18/24 Renu Ventura MD [address] [address] PCP - General Internal Medicine 01/19/24 documented as of this encounter Additional Source Comments The information contained in this document represents components of the legal health record. It is not the complete legal health record.[facility]
--- OUTSIDE RECORDS SUMMARY | 2025-05-02 17:05 | XMS_ITS | Clinical Summary ---
Author Organization [facility] 299 [facility] Address 299 [place] [address] Phone Care Team Providers Care Quantitative Software Engineer Name Role Phone Renu Ventura MD Primary [...] Take 150 mg by mouth daily. Active cholecalciferol , vitamin D3, 75 mcg (3,000 unit) tablet Take by mouth. Daily Active aspirin (ASPIR-81 ORAL) Acti ve atorvastatin (LIPITOR) 10 mg tablet Take 10 mg by mouth daily. Active ezetimibe (ZETIA) 10 mg tablet Take 10 mg by mouth daily. Active benzonatate (TESSALON) 200 mg capsule TAKE [...] SEE ATTACHED FOR DETAILED DIRECTIONS Active lisinopriL (PRINIVIL,ZESTR IL) 10 mg tablet Take 1 tablet (10 [...] topically 3 (three) times a day. Active multivit-min/fe rrous fumarate (MULTI VITAMIN ORAL) Take by mouth. Activ e polyethylene glycol (MIRALAX) 17 gram packetIndicatio ns:Slow transit constipation Take 17 g by mouth 1 (one) time each day. 510 g 11 10/13/19 25 2025 Active rOPINIRole (REQUIP) 1 mg tablet Take 1 tablet (1 mg total) by mouth at bedtime. 30 tablet 3 01/20/20 25 Active cetirizine (ZyrTEC) 10 mg tablet Take 1 tablet (10 mg total) by mouth 1 (one) time each day. Active NexIUM [address] capsuleIndicati ons:GERD (gastroesophage al reflux disease) TAKE 1 CAPSULE BY MOUTH TWICE A DAY 180 each 3 05/02/20 [address] capsuleIndicati ons:GERD (gastroesophage al reflux disease) TAKE 1 CAPSULE BY MOUTH TWICE A DAY 180 capsule 2 07/12/19 25 2024 Discontinued Active Problems Problem Noted Date Diagnosed Date Breast pain 01/01/2019 Class 3 severe obesity with body mass index (BMI) of 40.0 to 44.9 in adult ([facility] V24, [facility] V28) 01/01/2019 Encounters Date Type Department Care Team Description 03/17/2025 1:30 PM EDT Office Visit Pulmonology - [address] [place] [address] Aaron Ross MD Pulmonary nodule (Primary Dx); Mild intermittent asthma, unspecified whether complicated; Obstructive sleep apnea; PLMD (periodic limb movement disorder) from Last 3 Months Surgical History Surgery Date Site/Laterality Comments BREAST REDUCTION PROCEDURE: [place] BREAST REDUCTION; COMMENT: 2016 TUBAL LIGATION PROCEDURE: [...] Upcoming Encounters Date Type Department Care Team ([facility] st Contact Info) Description 09/14/2025 1:00 PM EDT Office Visit Pulmonology - [place] 175 [facility] 200 [place] [phone] Aaron Ross MD [address] [place] [phone] 11/08/2025 1:20 PM EDT Office Visit Gastroenterology - [address] 299 [facility] [address] [place] [phone] Madhavi Leyva NP 299 [facility] [address] [place] [address] Health Maintenance Due Date Last Done Comments [...] Additional history exists Influenza Vaccine (#1) 2025 4, 04/09/2023, 05/07/2022, Additional history exists DTaP,Tdap,and Td [...] Insurance MEDICARE MEDICAID - [place] Care Teams Quantitative Software Engineer Relationship Specialty Start Date End Date Renu Ventura MD [address] [place] [address] PCP - General Internal Medicine 10/12/24
== END 2025-05-02 14:51 | disposition home or self-care (01) ==
LOC: HO.HMGAL 14:50
PROVIDERS: PCP Internal Medicine; Visit Provider Registered Nurse Emergency
DX: J30.89 Other allergic rhinitis (principal)
CPT/HCPCS: 95117; 95165

== ENCOUNTER 2025-05-16 15:19 | Outpatient (AMB) | payer MEDICARE, MEDICAID, SELFPAY ==
--- OUTSIDE RECORDS SUMMARY | 2025-05-16 20:00 | XMS_ITS | Clinical Summary ---
Author Organization [facility] Address [address] [address] Phone Care Team Providers Care Tread Booker Name Role Phone Renu Ventura MD Primary [...] MEDICARE PART A & B [facility] MEDICARE PART A & B [facility] MED[facility] A & B [facility] MEDICARE PART A & [facility] MEDICARE PART A & [place] [facility] [facility] B [facility] Care Teams Tread Booker Relationship Specialty Start Date End Date Renu Ventura MD [address] [place] [address] PCP - General Internal Medicine 01/19/24 Additional Source Comments The information contained in this document represents components of the legal health record. It is not the complete legal health record.[facility]
--- OUTSIDE RECORDS SUMMARY | 2025-05-16 20:00 | XMS_ITS | Clinical Summary ---
Author Organization [facility] 299 [facility] Address [address] [place] [address] Phone Care Team Providers Care Utility Person Name Role Phone Renu Ventura MD Primary [...] (BMI) of 40.0 to 44.9 in adult ([facility] V24, [facility] V28) 01/01/2019 Encounters Date Type Department Care Team Description 03/17/2025 1:30 PM EDT Office Visit Pulmonology - [address] [place] [address] Aaron Ross MD Pulmonary nodule (Primary Dx); Mild intermittent asthma, unspecified whether complicated; Obstructive sleep apnea; PLMD (periodic limb movement disorder) from Last 3 Months Surgical History Surgery Date Site/Laterality Comments BREAST REDUCTION PROCEDURE: [place] BREAST REDUCTION; COMMENT: 2016 TUBAL LIGATION PROCEDURE: [...] Upcoming Encounters Date Type Department Care Team ([facility] st Contact Info) Description 09/14/2025 1:00 PM EDT Office Visit Pulmonology - [place] 175 [facility] [address] [place] [phone] Aaron Ross MD [address] [place] [phone] 11/08/2025 1:20 PM EDT Office Visit Gastroenterology - [address] 299 [facility] [address] [place] [phone] Madhavi Leyva NP 299 [facility] [address] [place] [address] Health Maintenance Due Date Last Done Comments [...] Insurance MEDICARE [place] - [place] Care Teams Utility Person Relationship Specialty Start Date End Date Renu Ventura MD [address] [place] [address] PCP - General Internal Medicine 10/12/24
--- OUTSIDE RECORDS SUMMARY | 2025-05-16 20:00 | XMS_ITS | Encounter Summary ---
Author Organization [facility] Address [address] [address] Phone Care Team Providers Care Territory Sales Manager Name Role Phone Lara Louis MD Primary Care Provider + Andie Santiago MD Primary Care Provider [phone] Renu Ventura MD Primary Care Provide r Reason for Referral * Physical Therapy (Routine) - Closed Specialty Diagnoses / Procedures Referred By Contfrancisco t Referred To Contact Physical Therapy Diagnoses Encounter for rehabilitation System, Provider Not In, PhD [phone] [place] [address] Phone: tel: Referral ID Status Reason Start Date Expiration Date Visits Re quested Visits Authorized [id number] Closed 05/12/2018 06/22/2019 99 99 Encounter Details Date Type Department Care Team (Latest Contact Info) Description 05/07/2018 Transcribe Orders [facility] [address] [place] [address] Lara Louis MD [address] [place] [phone] [email or web address] Encounter for rehabilitation (Primary Dx) Social History [...] Diagnoses Orde r Schedule Ambulatory referral to [facility] Physical Therapy Outpatient Referral Routine Encounter for rehabilitation Ordered: 05/07/2018 documented as of this encounter Visit Diagnoses Diagnosis Encounter for rehabilitation- Primary documented in this encounter Additional Health Concerns Infection Onset Date Last Indicated Resolved Time CoV-Risk 01/19/2024 01/19/2024 01/30/2024 1:22 AM EDT documented as of this encounter Care Teams Territory Sales Manager Relationship Specialty Start Date End Date Lara Louis MD [email or web address] PCP - General 06/26/17 08/29/21 Andie Santiago MD PCP - General Internal Medicine 08/30/21 01/18/24 Renu Ventura MD [address] [address] PCP - General Internal Medicine 01/19/24 documented as of this encounter Additional Source Comments The information contained in this document represents components of the legal health record. It is not the complete legal health record.[facility]
== END 2025-05-16 15:20 | disposition home or self-care (01) ==
LOC: HO.HMGAL 15:19
PROVIDERS: PCP Internal Medicine; Visit Provider Registered Nurse Emergency
DX: J30.89 Other allergic rhinitis (principal)
CPT/HCPCS: 95117; 95165

== ENCOUNTER 2025-06-01 16:00 | Outpatient (AMB) | payer MEDICARE, MEDICAID, SELFPAY ==
--- OUTSIDE RECORDS SUMMARY | 2025-06-02 00:42 | XMS_ITS | Encounter Summary ---
Author Organization [facility] Address [address] [place] [address] Care Team Providers Care Child Development Instructor Name Role Phone Renu Ventura MD Primary Care Provider [phone] Encounter Details Date Type Department Care Team (Late Contact Info) Description 05/31/2025 Telephone Gastroenterology - [address] [place] [phone] Barbara Durán MD 299 [facility] [address] [place] [address] Social History Tobacco Use Types Packs/Day Years Used Date Smoking Tobacco: Never Smokeless Tobacco: Never Alcohol Use Standard Drinks/Week Comments No 0 (1 standard drink = 0.6 oz pur e alcohol) Comments Unknown Sex and Gender Information Value Date Recorded Sex Assigned at Not on file Legal Sex Female 10:54 PM EST Gender Identity Not on file Sexual Orientation Not on file documented as of this encounter Plan of Treatment Upcoming Encounters Date Type Department [facility] Description 09/14/2025 1:00 PM EDT Office Visit Pulmonology - [place] 175 [facility] 200 [place] [phone] Aaron Ross MD [address] [place] [phone] 11/08/2025 1:20 PM EDT Office Visit Gastroenterology - [address] [place] [address] [address] [place] [address] Madhavi Leyva, DEIDRE [address] [address] documented as of this encounter Visit Diagnoses Not on filedocumented in this encounter Care Teams Child Development Instructor Relationship Specialty Start Date End Date Renu Ventura MD 57 [place] [address] PCP - General Internal Medicine 10/12/24 documented as of this encounter
--- OUTSIDE RECORDS SUMMARY | 2025-06-02 00:42 | XMS_ITS | Clinical Summary ---
Author Organization [facility] Address [address] [address] Phone Care Team Providers Care Hot Roll Laminator Name Role Phone Renu Ventura MD Primary [...] Payer (Ef fective 2006-Present) Name:Andie Dotson Member ID:[id number] Relation to Subscriber:Self Name:Andie Dotson Subscriber ID:[id number] Payer ID:[id number] Group ID:Not on file Type:Medicare Address: [facility] [employer] [facility] [address] [place] [address] [facility] MEDICARE PART A & B [facility] MEDICARE PART A & B [facility] B MEDICARE PART A & B MEDICARE PART A & B [facility] MEDIC[facility] PART A & B [facility] & [facility] & B [facility] Care Teams Hot Roll Laminator Relationship Specialty Start Date End Date Renu Ventura MD [address] [address] PCP - General Internal Medicine 01/19/24 Additional Source Comments The information contained in this document represents components of the legal health record. It is not the complete legal health record.[facility]
--- OUTSIDE RECORDS SUMMARY | 2025-06-02 00:42 | XMS_ITS | Clinical Summary ---
Author Organization [facility] 299 [facility] Address [address] [place] [address] Phone Care Team Providers Care Milk Of Lime Slaker Name Role Phone Renu Ventura MD Primary [...] each day. Active NexIUM [address] capsuleIndicatio ns:GERD (gastroesophagea l reflux disease) TAKE 1 CAPSULE BY MOUTH TWICE A DAY 180 each 3 5 Active Active Problems Problem Noted Date Diagnosed Date Breast pain 01/01/2019 Class 3 severe obesity with body mass index (BMI) of 40.0 to 44.9 in adult 01/01/2019 Encounters Date Type Department Care Team Description 05/31/2025 Telephone Gastroenterology - [address] [address] Barbara Durán MD 03/17/2025 1:30 PM EDT Office Visit Pulmonology - [place] 175 [facility] 200 [place] [address] Aaron Ross MD Pulmonary nodule (Primary Dx); Mild intermittent asthma, unspecified whether complicated; Obstructive sleep apnea; PLMD (periodic limb movement disorder) from Last 3 Months Surgical History Surgery Date Site/Laterality Comments BREAST REDUCTION PROCEDURE: [place] BREAST REDUCTION; COMMENT: 2016 TUBAL LIGATION PROCEDURE: [...] on file Sexual Orientation Not on file Last Filed Vital Signs Vital Sign Reading [...] 1:00 PM EDT Office Visit Pulmonology - [place] 175 [facility] [address] [place] [phone] Aaron Ross MD [address] [place] [phone] 11/08/2025 1:20 PM EDT Office Visit Gastroenterology - [address] [place] 299 [facility] [address] [place] [phone] Madhavi Leyva NP 299 [facility] [address] [place] [address] Health Maintenance Due Date Last Done Comments [...] Insurance MEDICARE MEDICAID - [place] Care Teams Milk Of Lime Slaker Relationship Specialty Start Date End Date Rneu Ventura MD 57 [place] [address] PCP - General Internal Medicine 10/12/24
--- OUTSIDE RECORDS SUMMARY | 2025-06-02 00:42 | XMS_ITS | Encounter Summary ---
Author Organization [facility] Address [address] [address] Phone Care Team Providers Care Printing Press Machine Operator Name Role Phone Lara Louis MD Primary Care Provider + Andie Santiago MD Primary Care Provider [phone] Renu Ventura MD Primary Care Provide r Reason for Referral * Physical Therapy (Routine) - Closed Specialty Diagnoses / Procedures Referred By Contfrancisco t Referred To Contact Physical Therapy Diagnoses Encounter for rehabilitation System, Provider Not In, PhD [phone] [place] [address] Phone: tel: Referral ID Status Reason Start Date Expiration Date Visits Re quested Visits Authorized [id number] Closed 05/12/2018 06/22/2019 99 99 Encounter Details Date Type Department Care Team (Latest Contact Info) Description 05/07/2018 Transcribe Orders [facility] [address] [place] [address] Lara Louis MD [address] [place] [address] [email or web address] Encounter for rehabilitation (Primary Dx) Social History [...] Diagnoses Orde r Schedule Ambulatory referral to [facility] Physical Therapy Outpatient Referral Routine Encounter for rehabilitation Ordered: 05/07/2018 documented as of this encounter Visit Diagnoses Diagnosis Encounter for rehabilitation- Primary documented in this encounter Additional Health Concerns Infection Onset Date Last Indicated Resolved Time CoV-Risk 01/19/2024 01/19/2024 01/30/2024 1:22 AM EDT documented as of this encounter Care Teams Printing Press Machine Operator Relationship Specialty Start Date End Date Lara Louis MD [email or web address] PCP - General 06/26/17 08/29/21 Andie Santiago MD PCP - General Internal Medicine 08/30/21 01/18/24 Renu Ventura MD [address] [address] PCP - General Internal Medicine 01/19/24 documented as of this encounter Additional Source Comments The information contained in this document represents components of the legal health record. It is not the complete legal health record.[facility]
== END 2025-06-01 16:02 | disposition home or self-care (01) ==
LOC: HO.HMGAL 16:00
PROVIDERS: PCP Internal Medicine; Visit Provider Registered Nurse Emergency
DX: J30.89 Other allergic rhinitis (principal)
CPT/HCPCS: 95117; 95165

== ENCOUNTER 2025-06-13 14:06 | Outpatient (AMB) | payer MEDICARE, MEDICAID, SELFPAY ==
--- OUTSIDE RECORDS SUMMARY | 2025-06-13 17:36 | XMS_ITS | Clinical Summary ---
Author Organization [facility] 299 [facility] Address [address] [place] [address] Phone Care Team Providers Care Track And Field Coach Name Role Phone Renu Ventura MD Primary [...] 510 g 11 10/13/19 25 026 Active cetirizine (ZyrTEC) 10 mg tablet Take 1 tablet (10 mg total) by mouth 1 (one) time each day. Active NexIUM [address] capsuleIndicatio ns:GERD (gastroesophagea l reflux disease) TAKE 1 CAPSULE BY MOUTH TWICE A DAY 180 each 3 05/02/20 25 Active rOPINIRole (REQUIP) 1 mg tablet Take 1 tablet (1 mg total) by mouth at bedtime. 30 tablet 11 06/10/20 25 Active rOPINIRole (REQUIP) 1 mg tablet Take 1 tablet (1 mg total) by mouth at bedtime. 30 tablet 3 01/20/20 25 025 Discontin ued(Reord er) Active Problems Problem Noted Date Diagnosed Date Breast pain 01/01/2019 Class 3 severe obesity with body mass index (BMI) of 40.0 to 44.9 in adult 01/01/2019 Encounters Date Type Department Care Team Description 05/31/2025 Telephone Gastroenterology - [address] [place] 299 [facility] [address] [place] [address] Barbara Durán MD 03/17/2025 1:30 PM EDT Office Visit Pulmonology - [place] 175 [facility] 200 [place] [address] Aaron Ross MD Pulmonary nodule [...] 1:00 PM EDT Office Visit Pulmonology - [place] 175 [facility] [address] [place] [phone] Aaron Ross MD [address] [place] [phone] 11/08/2025 1:20 PM EDT Office Visit Gastroenterology - [address] 299 [facility] [address] [place] [phone] Madhavi Leyva NP 299 [facility] [address] [place] [address] Health Maintenance Due Date Last Done Comments [...] Insurance MEDICARE MEDICAID - [place] Care Teams Track And Field Coach Relationship Specialty Start Date End Date Renu Ventura MD 57 [place] [address] PCP - General Internal Medicine 10/12/24
--- OUTSIDE RECORDS SUMMARY | 2025-06-13 17:36 | XMS_ITS | Clinical Summary ---
Author Organization [facility] Address [address] [address] Phone Care Team Providers Care Area Coordinator Name Role Phone Renu Ventura MD Primary [...] file Insurance MEDICARE PART A & B [facility] MEDICARE PART A & B [employer] MEDICARE PART A & B [facility] MEDICARE PART A & B MEDICARE PART A & B [facility] MEDIC[facility] PART A & [facility] & B [facility] Care Teams Area Coordinator Relationship Specialty Start Date End Date Renu Ventura MD [address] [address] PCP - General Internal Medicine 01/19/24 Additional Source Comments The information contained in this document represents components of the legal health record. It is not the complete legal health record.[facility]
--- OUTSIDE RECORDS SUMMARY | 2025-06-13 17:36 | XMS_ITS | Encounter Summary ---
Author Organization [facility] Address [address] [address] Phone Care Team Providers Care Medium Cycle Salesperson Name Role Phone Lara Louis MD Primary Care Provider + Andie Santiago MD Primary Care Provider Renu Ventura MD Primary Care Provide r Reason for Referral * Physical Therapy (Routine) - Closed Specialty Diagnoses / Procedures Referred By Contfrancisco t Referred To Contact Physical Therapy Diagnoses Encounter for rehabilitation System, Provider Not In, PhD [phone] [place] [address] Phone: tel: Referral ID Status Reason Start Date Expiration Date Visits Re quested Visits Authorized [id number] Closed 05/12/2018 06/22/2019 99 99 Encounter Details Date Type Department Care Team (Latest Contact Info) Description 05/07/2018 Transcribe Orders [facility] [address] [place] [address] Lara Louis MD [address] [place] [phone] [email or web address] Encounter for rehabilitation (Primary Dx) Social History [...] Diagnoses Orde r Schedule Ambulatory referral to [facility] Physical Therapy Outpatient Referral Routine Encounter for rehabilitation Ordered: 05/07/2018 documented as of this encounter Visit Diagnoses Diagnosis Encounter for rehabilitation- Primary documented in this encounter Additional Health Concerns Infection Onset Date Last Indicated Resolved Time CoV-Risk 01/19/2024 01/19/2024 01/30/2024 1:22 AM EDT documented as of this encounter Care Teams Medium Cycle Salesperson Relationship Specialty Start Date End Date Lara Louis MD [email or web address] PCP - General 06/26/17 08/29/21 Andie Santiago MD PCP - General Internal Medicine 08/30/21 01/18/24 Renu Ventura MD [address] [address] PCP - General Internal Medicine 01/19/24 documented as of this encounter Additional Source Comments The information contained in this document represents components of the legal health record. It is not the complete legal health record.[facility]
== END 2025-06-13 14:08 | disposition home or self-care (01) ==
LOC: HO.HMGAL 14:06
PROVIDERS: PCP Internal Medicine; Visit Provider Registered Nurse Emergency
DX: J30.89 Other allergic rhinitis (principal)
CPT/HCPCS: 95117; 95165